=== PATIENT | male | born 1995 | race Caucasian/White ===

== ENCOUNTER 2018-02-18 10:07 | Emergency (ER) | payer BC, SELFPAY ==
[2018-02-18 10:09] VITALS: BP 154/88; PULSE 62; RESP 13; TEMP 36.7; O2SAT 100; BMI 28.2
--- NOTE | 2018-02-18 10:26 | EKG12_ITS ---
Test Reason : CP Blood Pressure : / mmHG Vent. Rate : 055 BPM Atrial Rate : 055 BPM P-R Int : 162 ms QRS Dur : 100 ms QT Int : 410 ms P-R-T Axes : 041 028 023 degrees QTc Int : 392 ms Sinus bradycardia with marked sinus arrhythmia Otherwise normal ECG Confirmed by MELO BENITEZ, DAVEY ([id number]), newspaper or periodical editor GEORGE RAYGOZA ([id number]) on 02/19/2018 5:02:16 PM Referred By: JODEE/MARYURI Confirmed By:DAVEY ALEJO MD
--- NOTE | 2018-02-18 10:27 | RAD_ITS ---
STUDY: X-RAY CHEST REASON FOR EXAM: Male, 23 years old. Chest pain TECHNIQUE: PA and lateral views of the chest. COMPARISON: None. FINDINGS: Cardiac monitoring leads overlie the chest. The lungs are clear and expanded. There is no demonstrated pleural abnormality. Normal size heart. Normal mediastinum and raisa. Normal visualized pulmonary arteries. Normal visualized aortic arch and descending thoracic aorta. Normal visualized thoracic spine. Normal visualized ribs, clavicles, and shoulders. There is no demonstrated abnormality of the visualized soft tissue structures of the upper abdomen. RAD/Chest PA and Lateral IMPRESSION: Normal x-ray examination of the chest. Electronically Signed: Chin Hebert DO at 11:36 EDT Tel , Service support ,
[2018-02-18 10:37] LABS: Absolute Lymphocyte Count 0.92 X10^3/ul (0.83-4.51); Absolute Neutrophil Count 4.8 X10^3/uL (2.0-7.7); Basophil# 0.01 X10^3/uL; Basophil% 0.2 % (0-1); Eosinophil# 0.14 X10^3/uL; Eosinophils% 2.1 % (0-5); Hematocrit 45.8 % (40-54); Hemoglobin 15.5 g/dl (13.0-16.5); Lymphocyte # 0.92 X10^3/ul (4.0); Lymphocyte % 13.9 % (19-41); Mean Corp Hgb Conc 33.8 g/gl (32-36); Mean Corpuscular Hgb 29.4 pg (27.0-32.0); Mean Corpuscular Volume 86.9 fL (80-94); Mean Platelet Vol. 10.8 fl (6.2-12.0); Monocyte% 10.6 % (0-10); Neutrophil # 4.84 X10^3/uL (2.7-7.7); POSITIVE COUNT NO; POSITIVE DIFFERENTIAL NO; POSITIVE MORPHOLOGY NO; Platelet Count 213 K/mm3 (150-450); RBC Distribution Width CV 12.8 % (11.6-14.6); RBC Distribution Width SD 40.6 fl (35.1-43.9); Red Blood Count 5.27 M/mm3 (4.6-6.2); White Blood Count 6.6 K/mm3 (4.4-11.0)
[2018-02-18] MEDS: Ondansetron 4 MG/2 ML Vial IV (10:43)
[2018-02-18 10:52] LABS: AST(SGOT) 21 U/L (15-37); Alanine Aminotransfer ALT/SGPT 46 U/L (16-61); Albumin, Serum 4.7 g/dL (3.2-5.0); Alkaline Phosphatase 98 U/L (45-117); Anion Gap 8 (5-15); BUN 9 mg/dL (7-18); BUN/Creat Ratio 8.1 RATIO (10-20); Calcium,Total 9.2 mg/dL (8.5-10.1); Chloride 102 mmol/L (98-107); Creatinine, Serum 1.11 mg/dL (0.70-1.30); EST Glomerular Filtration Rate 86 mL/min (>60); Est Glom Filt Rate - Afr Amer 105 mL/min (>60); Globulin 4.1 g/dL (2.2-4.2); Glucose 82 mg/dL (74-106); Lipase 97 U/L (73-393); Potassium 3.8 mmol/L (3.5-5.1); Protein, Total 8.8 g/dL (6.4-8.2); Sodium Level 139 mmol/L (136-145)
[2018-02-18 11:22] VITALS: BP 139/87; PULSE 68; RESP 14; O2SAT 98
--- NOTE | 2018-02-18 11:47 | CT_ITS ---
STUDY: CTA CHEST REASON FOR EXAM: Male, 23 years old. Chest pain RADIATION DOSAGE (If Supplied By Facility): CTDIvol = ( 12.30 ) mGy, DLP = ( 396.07 ) mGycm TECHNIQUE: The examination was performed with the intravenous administration of 100 ml of Isovue 370 contrast material. Post-processing of the angiographic images was performed, with multiplanar reformation and 3D reconstruction. Individualized dose optimization techniques were used for this CT. COMPARISON: Chest x-ray, same date FINDINGS: Normal enhancement of the main pulmonary artery and right and left pulmonary arteries. Normal enhancement of the bilateral peripheral pulmonary arteries. There is no demonstrated pulmonary embolism. Normal thoracic aorta and visualized great vessels. There is no demonstrated aortic dissection. Normal heart and pericardium. Normal mediastinum. Normal hilar regions. Normal visualized trachea and bronchi. The lungs are well expanded. Normal pulmonary parenchyma. Normal pleura. Normal chest wall structures. Normal osseous structures. Normal visualized upper abdomen. CT/CTA Chest W/WO Contrast IMPRESSION: Normal CTA chest examination, without a demonstrated pulmonary embolism or arterial dissection. Electronically Signed: Chin Hebert DO at 12:41 EDT Tel , Service support ,
--- NOTE | 2018-02-18 13:05 | ED.DCSUM_ITS ---
- ER Visit Summary Date of Service: 02/18/18 Chief Complaint: Chest pain History of Present Illness: The patient is a 23 M who presents with chest pain. He states that 5 days ago he was drinking heavily he did have some vomiting during this. The next day he did not feel well. He went to the emergency department due to some epigastric abdominal pain and burning in the chest. He had laboratory studies and an EKG. He was seen again the next day for the same symptoms and told he likely had gastritis or esophagitis and was started on Pepcid and Zofran. He actually has an appointment with his primary care physician today. However given his symptoms continued he decided to come here to the emergency department. He does complain of intermittent abdominal cramping. He states it feels like there is a bubble in his chest. He had some left arm and leg numbness earlier today which is now gone. He did have some pain in his upper back between shoulder blades. Physical Examination: Blood pressure 154/88 vitals otherwise unremarkable Moist mucous membranes Heart regular rate and rhythm Lungs clear Abdomen soft Alert Test Results: EKG shows sinus rhythm at a rate of 55 with a sinus arrhythmia. Two-view chest x-ray is normal. CTA of the chest is normal. CBC BMP hepatic function lipase notable for total bilirubin of 1.1 which is minimally elevated otherwise normal. Troponin is negative. Emergency Department Course and Treatment: She was given a GI cocktail and Zofran here. He is resting comfortably on reevaluation. Given his report of transient left-sided paresthesias and back pain a CTA of the chest was obtained to rule out dissection. This is also normal. I agree with the previous assessment given the burning type pain after heavy drinking but there likely is a component of gastritis. He was advised to continue his current management advised to follow-up with his primary care physician and he was discharged home. Treatment Plan: [] Disposition: Discharge Impression: Chest pain Gastritis This note was generated with [employer] dictation software. It may contain incorrect words, spelling, and punctuation that were not noted in review of the chart prior to signing ED Disposition - Plan for ED Patient: Chief Complaint: Chest Pain Referrals: German Novoa [Primary Care Provider] -
--- NOTE | 2018-02-18 13:05 | ED.DEP ---
ED Disposition - Plan for ED Patient: Chief Complaint: Chest Pain Instructions: ED Chest Pain NonCardiac Referrals: German Novoa [Primary Care Provider] -
[2018-02-18 13:16] VITALS: BP 144/86; PULSE 72; RESP 16; O2SAT 99
== END 2018-02-18 13:17 | disposition home or self-care (01) ==
PROVIDERS: Emergency Provider Emergency Medicine; Family Provider Internal Medicine; PCP Internal Medicine
DX: R07.9 Chest pain, unspecified (principal); K29.70 Gastritis, unspecified, without bleeding; Z72.0 Tobacco use
CPT/HCPCS: 71046; 71275; 80048; 80076; 83690; 84484; 85025; 93005; 96374; 99285; Q9967; A4216; J2405

== ENCOUNTER → 2021-01-18 08:00 | Outpatient (CLI) | payer OTHER, SELFPAY ==
[2019-04-21 10:22] VITALS: BMI 28.2
== END ==
PROVIDERS: PCP Internal Medicine; Referring Provider Family Medicine; Visit Provider Family Medicine
DX: Z23 Encounter for immunization (principal)
CPT/HCPCS: 0001A; 0002A; 91300